=== PATIENT | female | born 1945 | race Caucasian/White ===

== ENCOUNTER 2020-06-20 13:47 | Emergency (ER) | payer OTHER | END 2020-06-20 15:06 | disposition home or self-care (01) | LOC: JVIRT 13:47 | DX: Z11.59 Encounter for screening for other viral diseases (principal) | CPT/HCPCS: C9803; Q3014-GT; U0003 ==

== ENCOUNTER 2020-06-30 10:30 | Emergency (ER) | payer OTHER | END 2020-06-30 11:49 | disposition home or self-care (01) | LOC: JVIRT 10:30 | DX: Z03.818 Encounter for observation for suspected exposure to other biological agents ruled out (principal) | CPT/HCPCS: C9803; G2012-GT; U0003 ==